=== PATIENT | male | born 1960 | race Caucasian/White ===

== ENCOUNTER 2018-01-13 08:29 | Outpatient (CLI) | payer BC ==
[2018-01-13] MEDS ORDERED: IOHEXOL 50 ML IV ONE (09:12)
[2018-01-13] MEDS ORDERED: LIDOCAINE 1%, 20 ML MDV 20 ML ONE (09:12)
[2018-01-13] MEDS ORDERED: BUPIVACAINE /PF 0.25% 30 ML VIAL INJ ONE (09:13)
[2018-01-13] MEDS ORDERED: NS 50 ML IV ONE (09:13)
[2018-01-13] MEDS ORDERED: methylPREDNISolone ACETATE 80 MG/ML ONE (09:13)
== END 2018-01-13 20:56 | disposition home or self-care (01) ==
LOC: SCT 08:29 → EDSTATUS 09:00 → SCT 20:56
PROVIDERS: ATTEND Orthopaedic Surgery
DX: M75.41 Impingement syndrome of right shoulder (principal)
CPT/HCPCS: 73040; 73201; J2001; Q9967; J1040; J3490